=== PATIENT | female | born 1935 | race Caucasian/White ===

== ENCOUNTER 2021-06-17 09:01 | Emergency (ER) | payer OTHER, MEDICAID ==
[~2021-06-17] VITALS: Ht 162.6 cm; Wt 88.9 kg
[~2021-06-17 09:01] MED LIST: ALBU0.0912 IH; BEN10 PO; CALC-751 PO; ENAL-197 PO; FERR324T11 PO; FURO-572 PO; LORA-476 PO; METO50TE2 PO; PANT40EC PO; SIMV20TA1 PO; VIT1CAPS9 PO
[2021-06-17 09:08] VITALS: BP 115/69
--- NOTE | 2021-06-17 09:10 | NUR ---
PT BIB FAMILY C/O CONSTIPATION X 1 WEEK AND RECTUM PAIN X 2 DAYS . LAST BM 1 WEEK AGO. PMH:A FIB .PT DENIES N/V/D; SKIN IS INTACT, PINK/WARM/DRY; AAOX4, PERRL, WITH EVEN AND STEADY GAIT; LUNGS CLEAR BL, BREATHING UNLABORED; HR EVEN AND REGULAR, BL PERIPHERAL PULSES PRESENT; BS ACTIVE X4, TENDERNESS TO PALPATION-LOW ABD. PT DENIES ANY FEVER, CP, SOB, OR COUGH AT THIS TIME; PT STATES 8/10 PAIN AT THIS TIME; VSS; PATIENT POSITIONED FOR COMFORT; HOB ELEVATED; BEDRAILS UP X2; BED DOWN.
--- NOTE | 2021-06-17 09:15 | NUR ---
PT W/C ASSISTED TO BED 9.
[2021-06-17] MEDS ORDERED: LACT10SO86 PO (09:30)
[2021-06-17] MEDS ORDERED: GLYPS RC (09:30)
[2021-06-17 09:55] VITALS: BP 119/68
--- NOTE | 2021-06-17 09:55 | NUR ---
Patient discharged with v/s stable. Written and verbal after care instructions given and explained. Patient alert, oriented and verbalized understanding of instructions. Ambulatory with steady gait. All questions addressed prior to discharge. ID band removed. Patient advised to follow up with PMD. Rx of glycerin, lactulose given. Patient educated on indication of medication including possible reaction and side effects. Opportunity to ask questions provided and answered.
== END 2021-06-17 09:55 | disposition home or self-care (01) ==
LOC: MED 09:01
DX: K59.00 Constipation, unspecified (principal); K62.89 Other specified diseases of anus and rectum; I11.0 Hypertensive heart disease with heart failure; I50.9 Heart failure, unspecified; Z90.49 Acquired absence of other specified parts of digestive tract; Z79.899 Other long term (current) drug therapy; Z98.890 Other specified postprocedural states
CPT/HCPCS: 99283